=== PATIENT | female | born 1955 | race Caucasian/White ===

== ENCOUNTER → 2021-08-24 | Outpatient (CLI) | payer MEDICARE, BC ==
[~2021-08-24] MED LIST: DRAMAMINE50 M1 PO; MAXALT10 MG PO; NKHM PO; RESTORIL15 MG PO; SYNTHROID,LEV112 MCG PO; TOPAMAX50 MG PO; VISTARIL25 MG PO; WELLBUTRIN100 MG PO; ZESTRIL,PRINIVI10 MG PO
== END | disposition home or self-care (01) ==
LOC: LAB 16:33
PROVIDERS: ATTEND Nurse Practitioner Family
DX: R19.7 Diarrhea, unspecified (principal)